=== PATIENT | male | born 1965 | race African-American/Black ===

== ENCOUNTER 2025-06-08 13:59 | Emergency (ER) | payer SELFPAY ==
[~2025-06-08] VITALS: Ht 170.2 cm; Wt 91.0 kg
[2025-06-08 14:03] VITALS: O2SAT 99
[2025-06-08 14:53] LABS: BASOPHILS % 0.4 % (0.0-2.0); EOSINOPHILS % 0.3 % (0.0-5.0); HEMATOCRIT. 42.8 % (42.0-52.0); HEMOGLOBIN. 14.4 g/dL (14.0-18.0); LYMPHOCYTES % 21.4 % (20.0-50.0); MEAN PLATELET VOLUME 7.6 fl (7.4-10.4); MONOCYTES % 7.0 % (2.0-8.0); NEUTROPHILS % 70.9 % (40.0-76.0); PLATELET 222 x1000/uL (130-400); RED BLOOD CELL COUNT 4.61 mill/uL (4.7-6.1); RED CELL DISTRIBUTION WIDTH 16.0 % (11.6-14.6)
[2025-06-08 15:11] LABS: CREATININE 1.0 mg/dL (0.6-1.3)
[2025-06-08 15:12] LABS: TROPONIN I HIGH SENSITIVITY 10 ng/L (3.0-53); UREA NITROGEN BLOOD 7 mg/dL (9-23)
[2025-06-08 15:13] LABS: ASPARTATE AMINOTRANSFERASE 19 IU/L (<34); BILIRUBIN DIRECT 0.2 mg/dL (<=3.0)
[2025-06-08 15:14] LABS: BILIRUBIN TOTAL 0.7 mg/dL (0.1-1.0); PROTEIN TOTAL 7.5 g/dL (6.0-8.3)
[2025-06-08] MEDS: SODIUM CHLORIDE 0.9% (SEPSIS BOLUS) IV ONE (15:50)
[2025-06-08] MEDS: CEFTRIAXONE 1GM/50ML 50 ML IV ONE (15:57)
[2025-06-08 16:16] LABS: *AMPHETAMINES SCREEN URINE NEGATIVE (NEGATIVE); *BARBITURATES SCREEN URINE NEGATIVE (NEGATIVE); *BENZODIAZEPINES SCREEN URINE NEGATIVE (NEGATIVE); *COCAINE SCREEN URINE NEGATIVE (NEGATIVE); CANNABINOID URINE SCREEN NEGATIVE (NEGATIVE); ECSTASY MDMA SCREEN URINE NEGATIVE (NEGATIVE); METHADONE URINE SCREEN NEGATIVE (NEGATIVE); OPIATES URINE SCREEN NEGATIVE (NEGATIVE); PHENCYCLIDINE URINE SCREEN PRESUMTIVE POSITIVE (NEGATIVE)
[2025-06-08 17:15] VITALS: BP 137/82; PULSE 99; RESP 19; TEMP 36.7; O2SAT 99
[2025-06-08] MEDS ORDERED: LORAZEPAM 2MG/ML UD SYRINGE IV SCH (17:30)
== END 2025-06-08 17:49 | disposition left against medical advice (07) ==
LOC: ER 13:59 → CANBEDREQ 17:48 → ER 17:49
DX: A41.9 Sepsis, unspecified organism (principal); F16.129 Hallucinogen abuse with intoxication, unspecified; R07.9 Chest pain, unspecified; Z79.899 Other long term (current) drug therapy; Y90.0 Blood alcohol level of less than 20 mg/100 ml
CPT/HCPCS: 80076; 80305; 80307; 80048; 80329; 80320; 82140; 83605; 85025; 87040; 87086; 84484; 36415; 71045; 70450; 93005; 96365; 99291; J0696; J7030; Z7610; G0480